=== PATIENT | female | born 1995 | race African-American/Black ===

== ENCOUNTER 2020-07-19 09:46 | Emergency (ER) | payer BC ==
--- NOTE | 2020-07-19 10:52 | ER Document Report ---
ED General - General Chief Complaint: Neck Pain >24hrs old Stated Complaint: ARM NUMBNESS Time Seen by Provider: 07/19/20 10:07 Notes: 25-year-old female presents with some left arm numbness for the last 2 weeks. The patient is worked a new job where she has been lifting things back and forth and has felt knots in her shoulder blades and neck. The patient states that usually her first 3 digits have become numb. It will come and go. If she is working it comes on if she is resting then it gets worse. Rates it is mild to moderate. Better with rest worse with working and lifting and moving. Denies headache or blurred vision. Complains of a knot to her left shoulder blade. It comes and goes. Denies fever chills denies chest pain no shortness of breath denies abdominal pain. The only thing that is numb is her fingers. - Related Data Allergies/Adverse Reactions: No Known Allergies Allergy (Unverified 07/19/20 10:30) Past Medical History - Social History Smoking Status: Unknown if Ever Smoked Chew tobacco use (# tins/day): No Frequency of alcohol use: None Drug Abuse: None Family History: Reviewed & Not Pertinent Patient has homicidal ideation: No Psychiatric Medical History: Reports: Hx Depression Review of Systems - Review of Systems Constitutional: denies: Chills, Fever EENT: No symptoms reported. denies: Blurred vision Cardiovascular: denies: Chest pain, Edema Respiratory: denies: Short of breath Gastrointestinal: denies: Nausea, Vomiting Genitourinary: denies: Dysuria, Flank pain, Hematuria Neurological/Psychological: Numbness, Tingling. denies: Headaches -: Yes All other systems reviewed and negative Physical Exam - Vital signs Vitals: Temp Pulse Resp BP Pulse Ox 99.0 F 90 16 163/114 H 99 07/19/20 09:55 07/19/20 09:55 07/19/20 09:55 07/19/20 09:55 07/19/20 09:55 - Notes Notes: GENERAL_APPEARANCE: well_nourished, alert, cooperative, no_acute_distress, no_obvious_discomfort. VITALS: reviewed, see vital signs table. HEAD: no_swelling\tenderness on the head. EYES: PERRL, EOMI, conjunctiva_clear. NOSE: no_nasal_discharge. MOUTH: (-)decreased moisture. THROAT: no_tonsilar_inflammation, no_airway_obstruction. no_lymphadenopathy NECK: supple, no_neck_tenderness, (-)thyromegaly. BACK: Slight discomfort left rhomboid muscle CHEST_WALL: no_chest_tenderness. LUNGS: no_wheezing, no_rales, no_rhonchi, (-)accessory muscle use, good air exchange bilateral. HEART: normal_rate, normal_rhythm, normal_S1, normal_S2, (-)S3, (-)S4, no_murmur, no_rub. ABDOMEN: normal_BS, soft, no_abd_tenderness, (-)guarding, (-)rebound, no_organomegaly, no_abd_masses. EXTREMITIES: strength 5/5 in all_extremities, good pulses in all_extremities, no_swelling\tenderness in the extremities, no_edema. SKIN: warm, dry, good_color, no_rash. MENTAL_STATUS: speech_clear, oriented_X_3, normal_affect, responds_appropriately to questions. NEURO: Neg Motor or Sensory Deficits on exam, CN 2-12 intact, DTR 2+ symmetric x 4, No cerbellar signs Course - Re-evaluation Re-evalutation: 07/19/20 10:52 25-year-old female presents with cervical radiculopathy. Rapid x-ray of her neck to see if there is any significant degenerative changes or malalignment there is no history of trauma. This may be more of a muscular type thing. She states when she relaxes it goes away spoke with patient about chiropractic massage. She verbalized understanding she has no bowel or bladder dysfunction. No real neck pain just more the discomfort in her shoulder blade and rhomboid muscle. She gets almost median nerve distribution numbness. This is likely either cervical radiculopathy versus early carpal tunnel syndrome. She states the knot in her shoulder blade seems to correlate when she has these episodes. We will place the patient on some steroids and refer her to primary care. Patient may need MRI in the futureand/or EMG testing. - Vital Signs Vital signs: Temp Pulse Resp BP Pulse Ox 99.0 F 90 16 163/114 H 99 07/19/20 09:55 07/19/20 09:55 07/19/20 09:55 07/19/20 09:55 07/19/20 09:55 - Diagnostic Test Radiology reviewed: Reports reviewed Radiology results interpreted by me: 07/19/20 12:42 Cervical Spine X-Ray 07/19/20 10:46 IMPRESSION: NO SIGNIFICANT RADIOGRAPHIC FINDING IN THE CERVICAL SPINE. Discharge - Discharge Clinical Impression: Cervical radiculopathy Condition: Good Disposition: HOME, SELF-CARE Instructions: Radiculopathy ([facility]) Prescriptions: Diclofenac Sodium 75 mg PO Q12 PRN #20 tablet. PRN Reason: Cyclobenzaprine HCl [Flexeril 10 mg Tablet] 10 mg PO TIDP PRN #15 tab PRN Reason:
--- NOTE | 2020-07-19 11:33 | RADIOLOGY REPORT (SQ) ---
EXAM DESCRIPTION: CERV SP 4 OR 5 VIEWS IMAGES COMPLETED DATE/TIME: 07/19/2020 11:17 am REASON FOR STUDY: neck pain arm numbess COMPARISON: None. NUMBER OF VIEWS: Five views. TECHNIQUE: AP, lateral, obliques and odontoid radiographic images acquired of the cervical spine. LIMITATIONS: None. FINDINGS: MINERALIZATION: Normal. ALIGNMENT: Anatomic. VERTEBRAE: Vertebral bodies of normal height. DISCS: No significant osteophytes or sclerosis. Disc height maintained. FORAMINA: No osteophytes or foraminal narrowing. LATERAL AND POSTERIOR ELEMENTS: Facets, lateral masses and spinous processes without significant find ings. HARDWARE: None in the spine. SOFT TISSUES: No masses or calcifications. Lung apices clear. OTHER: No other significant finding. IMPRESSION: NO SIGNIFICANT RADIOGRAPHIC FINDING IN THE CERVICAL SPINE. TECHNICAL DOCUMENTATION: JOB ID: [id number] 2010 [employer]- All Rights Reserved Reading location - IP/workstation name: [email or web address]
[2020-07-19 13:22] VITALS: BP 170/106
--- NOTE | 2020-07-19 14:18 | EKG REPORT ---
SEVERITY:- BORDERLINE ECG - SINUS RHYTHM PROBABLE LEFT ATRIAL ABNORMALITY : Confirmed by: Dean Chung MD 19-Jul-2020 14:17:28
== END 2020-07-19 13:24 | disposition home or self-care (01) ==
LOC: ER 09:46
DX: M54.12 Radiculopathy, cervical region (principal); R20.2 Paresthesia of skin; I10 Essential (primary) hypertension
CPT/HCPCS: 72050; 93005; 93010; 99284